=== PATIENT | male | born 2005 | race Caucasian/White ===

== ENCOUNTER 2024-08-08 19:27 | Inpatient (IN) | payer OTHER, BC ==
[~2024-08-08] VITALS: Ht 177.8 cm; Wt 72.7 kg
[~2024-08-08 19:27] MED LIST: CEFAZOLIN SODIUM 2 GM/20 ML SYR IV SCH; GABAPENTIN 300 MG CAP PO SCH; SEVOFLURANE 250 ML BTL INH ONE
[2024-08-08] MEDS ORDERED: CEFAZOLIN SODIUM 2 GM/20 ML SYR IV ONE (19:45)
[2024-08-08] MEDS ORDERED: HYDROmorphone HCL 1 MG/ML SYR IV PRN (19:45)
[2024-08-08] MEDS ORDERED: FAMOTIDINE 20 MG/ 2 ML VIAL IV ONE (19:45)
[2024-08-08] MEDS ORDERED: DIPHTH,PERTUSS(ACELL),TET VAC 0.5 ML SYRINGE IM ONE (19:45)
[2024-08-08] MEDS ORDERED: LACTATED RINGER'S 1,000 ML IV ONE (19:45)
[2024-08-08] MEDS ORDERED: ondansetron HCL 4 MG/2 ML VIAL IV PRN (19:45)
[2024-08-08 19:55] LABS: BASOPHILS 0.3 % (0.2-1.2); EOSINOPHILS 0.1 % (0.8-7.0); HEMATOCRIT 40.3 % (40.1-51.0); HEMOGLOBIN 13.3 g/dL (13.7-17.5); LYMPHOCYTES 5.4 % (21.8-53.1); MCH 28.7 PG (25.7-32.2); MONOCYTES 5.8 % (5.3-12.2); NEUTROPHILS 88.2 % (34.0-67.9); PLATELET COUNT 263 K/uL (163-337); RBC 4.63 M/uL (4.63-6.08)
[2024-08-08 20:12] LABS: ALBUMIN 4.1 g/dL (3.4-5.0); ALBUMIN/GLOBULIN RATIO 2.05 (1.1-2.4); ALCOHOL, MEDICAL <3 ng/dL (<3); ALKALINE PHOSPHATASE 90 U/L (46-116); ALT (SGPT) 26 U/L (14-59); ANION GAP 14.1 (7-21); AST (SGOT) 18 U/L (15-37); BILIRUBIN, TOTAL 0.6 mg/dL (0.2-1.0); BUN/CREATININE RATIO 11.11 (6.0-28.6); CALCIUM 8.8 mg/dL (8.5-10.1); CARBON DIOXIDE 27 mmol/L (21-32); CHLORIDE 108 mmol/L (98-107); CREATININE, SERUM 1.08 mg/dL (0.70-1.30); GLOMERULAR FILTRATION RATE,EST 101 mL/min (>60); POTASSIUM 4.1 mmol/L (3.5-5.1); PROTEIN, TOTAL 6.1 g/dL (6.4-8.2); UREA NITROGEN 12 mg/dL (7-18)
[2024-08-08] MEDS ORDERED: SENNOSIDES 1 TAB PO SCH (21:00)
[2024-08-08] MEDS ORDERED: propofoL 200 MG/20 ML VIAL ONE (21:13)
[2024-08-08] MEDS ORDERED: ondansetron HCL 4 MG/2 ML VIAL ONE (21:13)
[2024-08-08] MEDS ORDERED: fentaNYL citrate 100 MCG/2 ML VIAL ONE ×2 (21:13→22:25)
[2024-08-08] MEDS ORDERED: ROCURONIUM BROMIDE 50 MG/5 ML SYR ONE (21:13)
[2024-08-08] MEDS ORDERED: DEXAMETHASONE SOD PHOS 4 MG/ML VIAL ONE (21:13)
[2024-08-08] MEDS ORDERED: LIDOCAINE HCL 2% 5 ML SDV ONE (21:13)
[2024-08-08] MEDS ORDERED: TRANEXAMIC ACID IN NACL,ISO-OS 200 ML IV ONE (21:34)
[2024-08-08] MEDS ORDERED: ACETAMINOPHEN 1,000 MG/100 ML VIAL ONE (22:41)
[2024-08-08] MEDS ORDERED: SUGAMMADEX SODIUM 200 MG/2 ML ML ONE (22:48)
[2024-08-08] MEDS ORDERED: Ropivacaine HCl 0.5% 30 ML VIAL ONE ×2 (22:52→22:54)
[2024-08-08] MEDS ORDERED: EPINEPHrine HCL 1 MG/ML AMP ONE (22:53)
[2024-08-08] MEDS ORDERED: OXYCODONE HCL 5 MG TAB PO PRN (23:00)
[2024-08-08] MEDS ORDERED: MEPERIDINE HCL 25 MG/1 ML VIAL ONE (23:12)
[2024-08-08] MEDS ORDERED: MEPERIDINE HCL 25 MG/1 ML VIAL IV PRN (23:15)
[2024-08-08] MEDS ORDERED: NALOXONE HCL 0.4 MG SYR IV PRN (23:15)
[2024-08-09] VITALS (13 sets, daily range): BP systolic 101–136; BP diastolic 53–67
--- NOTE | 2024-08-09 00:02 | NUR ---
08/09/24 0002 Kaila Ball 2303 PT ARRIVED IN PACU SLEEPY AND SHIVERING. 2313 DEMEROL 12.5MG GIVEN IV. 2315 PT RESTING. REU. 2320 L LEG ELEVATED ON PILLOWS. 2330 ICE TO L LEG. 2340 C/O 6/10 PAIN IN L LEG. DEMEROL 12.5MG GIVEN IV. 2355 PT AWAKENS TO VERBAL STIMULI, THEN FALLS BACK TO SLEEP. NO C/O'S AT THIS TIME. PT SWITCHED TO PHASE 2 RECOVERY WHILE WAITING FOR ANESTHESIA TO RETURN AND BLOCK PT'S LEG.
--- NOTE | 2024-08-09 01:01 | NUR ---
Pt arrived to floor at 0035 from PACU via bed, alert and oriented. Dressing L leg, elevated with pilloes, ice to area. Family in room
[2024-08-09 01:25] LABS: BILIRUBIN, URINE NEGATIVE (negative); BLOOD/HGB, URINE NEGATIVE (Negative); KETONE, URINE NEGATIVE (Negative); LEUK ESTERASE, URINE NEGATIVE (negative); NITRITE, URINE NEGATIVE (negative)
[2024-08-09 01:39] LABS: AMPHETAMINES, URINE NEGATIVE (NEGATIVE); BARBITURATES, URINE NEGATIVE (NEGATIVE); BENZODIAZEPINE, URINE NEGATIVE (NEGATIVE); BUPRENORPHINE, URINE NEGATIVE (NEGATIVE); CANNABINOID, URINE NEGATIVE (NEGATIVE); COCAINE, URINE NEGATIVE (NEGATIVE); ECSTASY, URINE NEGATIVE (NEGATIVE); FENTANYL, URINE POSITIVE (NEGATIVE); METHADONE, URINE NEGATIVE (NEGATIVE); OPIATES, URINE POSITIVE (NEGATIVE); OXYCODONE, URINE NEGATIVE (NEGATIVE); PHENCYCLIDINE, URINE NEGATIVE (NEGATIVE)
--- NOTE | 2024-08-09 01:53 | NUR ---
VOIDED LARGE AMUNT CLEAR YELLOW URINE. NO C/O PAIN AT THIST BAUDILIO, DROWSY, L LEG DRESSING CDI, ELEVATED WITH PILLOWS, ICE TO AREA
[2024-08-09] MEDS ORDERED: TRANEXAMIC ACID IN NACL,ISO-OS 1,000 MG/100 ML PIGGYBACK IV SCH ×2 (01:56→07:00)
--- NOTE | 2024-08-09 02:49 | NUR ---
RESTING, AWAKENS EASILY. NO C/O PAIN. L LEG DRESSING CDI, ELEVATED W PILLOWS, FRESH ICE TO ARE. SCDS r LEG.
--- NOTE | 2024-08-09 03:46 | NUR ---
RESTING, AWAKENS EASILY, GOOD CMS L LEG, DRESSING CDI, WIGLES TOES WARM TO TOUCH, ELEVATED W PILLOWS, ICE TO AREA. DENIES C/O PAIN AT THIS TIME. COOPERATIVE WITH ASSESSMENT AND VITALS
--- NOTE | 2024-08-09 07:10 | NUR ---
Pt report received from JUDY Gallegos. Pt is resting supine in bed, LLE elevated on 2 pillows, dressings C/D/I. Pt has sensation in toes on left foot but still can't feel touch on the bottom of his left foot. He states he isn't having any pain at the moment. Fresh ice packs and fresh iced water were provided at this time. Pt would like to brush his teeth and the supplies were provided to him for this, along with a cup of water to rinse with. Reviewed the menu for meals and showed him how to order a change for his meals. Pt denies further needs at this time. Side rails up x3, call light in reach. White board updated.
--- NOTE | 2024-08-09 08:19 | NUR ---
PT ALERT AND AWAKE WHEN I ENTERED ROOM. CHANGED WHITE BOARD. GOT PT APPLE JUICE REQUESTED, EMPTIED URINAL. CALL LIGHT WITHIN REACH, PT REQUESTED NOTHING ELSE AT THIS TIME.
[2024-08-09] MEDS ORDERED: ASPIRIN 325 MG TAB PO SCH (09:00)
--- NOTE | 2024-08-09 09:36 | OR ---
[facility] [address] [place], [place] [address] Signed DATE OF OPERATION: 08/08/2024 SURGEON: Saritha Casey MD PREOPERATIVE DIAGNOSIS: Grade 1 open tibia-fibula fracture, left. POSTOPERATIVE DIAGNOSIS: Grade 1 open tibia-fibula fracture, left. PROCEDURES PERFORMED: Irrigation and debridement of skin, subcutaneous tissue, and bone; open reduction and intramedullary rodding of the tibia. BALLISTIC TECHNICIAN: Duyen Szymanski PA-C. Duyen was present and critical for all portions of procedure. ANESTHESIA: General. BLOOD LOSS: 150 mL. IMPLANTS: 9 x 330 Synthes tibial nathaniel with 4 locking screws. BRIEF HISTORY: Brittni is a 18-year-old who was bucked off his horse at the [place] this evening. He suffered a grade 1 open fracture, was transported by EMS to the emergency department. Risks, benefits, and alternatives of surgery tonight were discussed with him and he elected to proceed. DESCRIPTION OF PROCEDURE: Once consent was obtained, he was taken to the operating room. After adequate anesthesia, he was placed on the operating room table. All downside pressure points were well padded. The left leg was prepped and draped in a standard sterile fashion. The small skin opening was actually posterior on the medial side and we actually made an incision overlying the fracture of about 2 inches long and delivered the bone into this. We then thoroughly cleansed it with normal saline under pulse lavage followed by Electronically Signed By: SARITHA CASEY MD 08/09/24 0936 PATIENT NAME: BRITTNI FISHER OPERATIVE REPORT DATE OF : 03 REPORT #: [id number] PHYSICIAN: SARITHA CASEY MD PCP: NO PRIMARY CARE PHYSICIAN REPORT IS CONFIDENTIAL AND NOT TO BE RELEASED WITHOUT AUTHORIZATION [facility] [address] [place], [place] [address] Signed Irrisept followed by more normal saline. Once this was completed, the fracture was then reduced and cross clamped. The reduction was noted to be good on the image intensifier. The proximal tibia was then approached through a 2-inch incision along the medial border of the patellar tendon. This was carried through the skin and subcutaneous tissue. Using the curved awl, we then entered the tibia in line with the shaft. Once this was completed, the ball-tipped guide nathaniel was advanced from the proximal tibia down the shaft across the fracture and into a center-center position in the distal tibia. Once this was completed, the tibia was reamed up to a 10 for using a 9 nathaniel. The 9 x 330 nathaniel was then selected, placed over the guide nathaniel and advanced from the proximal tibia distally until it was well seated in the distal tibia. The guide nathaniel was then removed. Two distal interlocking screws were placed using a perfect circles technique. Two proximal locking screws were then placed. Once this was completed, all wounds were cleansed again with normal saline, closed with 2-0 Monocryl for the subcutaneous tissue and caitlyn for the skin. All wounds were then cleansed, dressed with Allevyn and was placed in a posterior splint. He tolerated the procedure well. All sponge, needle, and instrument counts were correct. Saritha Casey MD BA/MODL /[id number] Copies: ~ Electronically Signed By: SARITHA CASEY MD 08/09/24 0936 PATIENT NAME: BRITNTI FISHER OPERATIVE REPORT DATE OF : 03 REPORT #: [id number] PHYSICIAN: SARITHA CASEY MD PCP: NO PRIMARY CARE PHYSICIAN REPORT IS CONFIDENTIAL AND NOT TO BE RELEASED WITHOUT AUTHORIZATION
--- NOTE | 2024-08-09 09:52 | NUR ---
PT AWAKE AND ALERT IN ROOM. DAD IN ROOM. CALL LIGHT WITHIN REACH, PT NEEDS NOTHING ELSE AT THIS TIME. PT HAS WATER AND ENERGY DRINK BY BED.
--- NOTE | 2024-08-09 10:33 | NUR ---
Physical therapist in with pt at this time. Family in room. Pt is sitting at edge of bed. Denies needs at this time.
--- NOTE | 2024-08-09 11:13 | NUR ---
In with pt to assess pain level post physical therapy session. He states it's "comfortable" and rates it at a 2 out of 10 at this time. When discussed, he states he will "ask for pain meds when it gets to a five". Encouraged pt to use call light if his pain increases, if he has questions, or he is concerned about anything. Pt verbalized understanding. Call light in reach.
--- NOTE | 2024-08-09 11:39 | NUR ---
In with pt in response to call light, pt reports "I can feel it getting warm where I broke it, so I think I'd like to take some pain meds". Pt also states he needs to use the toilet. SBA as pt uses crutches and toe touch weight bearing to his left leg to ambulate into bathroom to void. Pt back to bed. CPOX on. Pt medicated with 5mg oxycodone per emar. Call light in reach.
--- NOTE | 2024-08-09 12:04 | NUR ---
Pt provided with fresh ice packs. He requested one be placed on each side of the posterior LE and one on top of his hewitt. LLE elevated on 2 pillows. Pt just got back from ambulating into bathroom to void in toilet, tolerated activity well using crutches and toe touch weight bearing on left leg. X1 unmeasured void. Call light in reach, pt denies further needs at this time.
--- NOTE | 2024-08-09 12:55 | NUR ---
In with pt for request for pain medication. Pt reports that he feels it "starting to get warm" and thinks maybe the nerve blocks are wearing off. He states his pain is at a 5 or 6 currently. 5mg oxycodone administered PO to total 10mg (5mg administered an hour prior). Pt expressed concern over maybe oxycodone won't work well for him but he thinks dilaudid might. Advised pt that when the next dose of oxycodone is available to administer, I will administer the full 10mg, rather than start with just 5mg, and we will see if that helps lower his pain more. Ice packs are on the affected extremity. We discussed the type of pain he is feeling and he states that it just feels "warm" and achy in the back of his leg. Call light in reach.
--- NOTE | 2024-08-09 14:26 | NUR ---
PT'S FATHER IS IN ROOM, BROUGHT PT LUNCH FROM FAST FOOD PLACE. PT IS EATING AND DRINKING WITHOUT PROBLEM. FATHER IS SLEEPING IN CHAIR CURRENTLY. CALL LIGHT IS WITHIN REACH. PT HAS FRESH ICE WATER NEXT TO BED. PT IS NOT ASKING FOR ANYTHING ELSE AT THIS TIME.
--- NOTE | 2024-08-09 17:31 | NUR ---
In with pt for pain assessment, 1h post administration of 10mg oxycodone. Pt reports his pain has decreased to a 3 or 4 from the 7, but he worries that it is going to wear off sooner than 4 hours and is requesting motrin and tylenol. Advised pt that I will contact Dr. Casey to see if he would be willing to enter an order for those meds. Pt has ice to LLE and it is elevated on 2 pillows. Dressings are C/D/I.
--- NOTE | 2024-08-09 17:55 | NUR ---
PC to Dr. Casey cell to update him on pt's pain control throughout the shift. Requested order for additional pain meds. Received verbal order for PO Toradol 10mg QID. Repeated order back for clarification. Order entered.
[2024-08-09] MEDS ORDERED: KETOROLAC TROMETHAMINE 10 MG TAB PO SCH (18:00)
--- NOTE | 2024-08-09 18:29 | NUR ---
PT RESTING IN BED, HEAD UP, PAIN RATED "AROUND A 2", ON A 0 TO 10 SCALE. PT REPORTED HIS DAD WENT TO GET HIM FAST FOOD, HE DID NOT LIKE HIS DINNER FROM THE HOSPITAL. GOT PT FRESH ICE BAGS AND FRESH ICE WATER. PT REPORTS NEEDING NOTHING ELSE AT THIS TIME. CALL LIGHT WITHIN REACH. PT WANTED LIGHTS OFF - WINDOW BLIND UP.
--- NOTE | 2024-08-09 23:06 | NUR ---
Patient awake, alert and oriented x3, no acute distress. Patient has left leg elevated with ice for comfort. Gus wrap to LLE is CDI. Patient aware he needs to call staff for assistance to restroom. Bed alarm intact.
--- NOTE | 2024-08-09 23:47 | NUR ---
PT RESTING WITH EYES CLOSED. PULSE OX 95%, BREATHING EVEN. CALL LIGHT WITHIN REACH.
--- NOTE | 2024-08-10 02:20 | NUR ---
Patient resting in bed, eyes closed, respirations even and non labored. No notable distress. Personal supplies and call light within reach.
--- NOTE | 2024-08-10 03:00 | NUR ---
RECEIVED REPORT FROM DAY SHIFT RN. PATIENT IS RESTING IN BED WITH EYES CLOSED, RR 16. CALL LIGHT IN REACH. NAD NOTED.
--- NOTE | 2024-08-10 04:17 | NUR ---
PATIENT IS RESTING IN BED WITH EYES CLOSED, RR 16. CALL LIGHT IN REACH. NAD NOTED. LLE ELEVATED ON PILLOWS.
[2024-08-10 05:58] VITALS: BP 126/61
--- NOTE | 2024-08-10 06:12 | NUR ---
PATIENT UP TO BR A SBA W/CRUTCHES. PATIENT ABLE TO VOID. PATIENT IS BACK IN BED RESTING AND LLE ELEVATED ON X2 PILLOWS. FRESH ICE PACKS APPLIED TO LLE. PATIENTS VITALS TAKEN AND RECORDED. INTAKE AND OUTPUT RECORDED. PATIENTS AM MEDS GIVEN PER ORDER. PATIENT RATES PAIN AT A 2/10 IN HIS LLE AND DENIES THE NEED FOR PAIN MEDICATION AT THIS TIME.
[2024-08-10 06:13] VITALS: BP 126/61
--- NOTE | 2024-08-10 07:06 | NUR ---
Pt report received from JUDY Saunders.
--- NOTE | 2024-08-10 07:43 | NUR ---
PATIENT IN BED AT THIS TIME. CYLINDER BLOCK MECHANIC CAHRTED HUORLY ROUNDS. CALL LIGHT WITHIN REACH, NO FURTHER NEEDS AT THIS TIME.
--- NOTE | 2024-08-10 09:27 | NUR ---
In with pt for morning assessment. Pt is up in bathroom, father in room. Linen change done at this time.
[2024-08-10 10:29] VITALS: BP 135/63
--- NOTE | 2024-08-10 10:32 | NUR ---
PATIENT IN BED AT THIS TIME. ANALYTICAL CLERK CHARTED VITALS AND I&O'S. PATIENT REFUSED SHOWER AT THIS TIME. CALL LIGHT WTIHIN REACH, NO FURTHER NEEDS AT THIS TIME.
--- NOTE | 2024-08-10 10:38 | NUR ---
UR CLINICAL REVIEW: JOHNATHON-BELEM DIEGO MEETS OPEN TIB/FIB FRACTURE WITH OPEN WOUND DREW [facility]ORD[facility] PPO INPT EMAIL SENT TO ADMITTING TO UPDATE REG AUTH RECVD FOR DREW.COPY SCANNED TO CHART. DISCHARGE TO HOME PENDING 48 HOURS IV ABX 08/13/24
[2024-08-10 10:54] VITALS: BP 135/63
[2024-08-10] MEDS ORDERED: OXYCODONE HCL5 MG PO (11:05)
[2024-08-10] MEDS ORDERED: ASPIRIN325 MG PO (11:05)
[2024-08-10] MEDS ORDERED: GABAPENTIN300 MG PO (11:05)
--- NOTE | 2024-08-10 11:29 | NUR ---
MED REC COMPLETE
[2024-08-10 13:23] VITALS: BP 128/74
== END 2024-08-10 13:25 | disposition home or self-care (01) | DRG 494 ==
LOC: ED 19:27 → MS 20:19
PROVIDERS: Internal Medicine; ADMIT Specialist; ATTEND Specialist
PROC: 0QSH06Z Reposition Left Tibia with Intramedullary Internal Fixation Device, Open Approach (ICD-10-PCS; principal; 2024-08-08 22:30)
DX: S82.202B Unspecified fracture of shaft of left tibia, initial encounter for open fracture type I or II (principal); S82.402B Unspecified fracture of shaft of left fibula, initial encounter for open fracture type I or II; W55.12XA Struck by horse, initial encounter
CPT/HCPCS: 00400; 36415; 73590; 73610; 80053; 80307; 81003; 85025; 90471; 90715; 96374; 96375; 96376; 97116; 97161; 99285-25; A9270; C1713; G0480; J0131; J0173; J0690; J1100; J1171; J2003; J2175; J2405; J2704; J2795; J3010; J3490; J7121